=== PATIENT | female | born 1975 | race Caucasian/White ===

== ENCOUNTER 2022-08-30 15:36 | Observation (INO) ==
[2022-08-30] MEDS ORDERED: ONDANSETRON 4 MG/2 ML VIAL IV PRN (17:36)
[2022-08-30] MEDS ORDERED: KETOROLAC 30 MG/1 ML VIAL IV PRN (17:42)
[2022-08-30] MEDS ORDERED: SODIUM CHLORIDE 0.9% 500 ML IV ONE (17:45)
[2022-08-30 18:37] LABS: Basophils % 0.1 % (0.0-0.8); Hematocrit 34.3 VOL% (35.7-47.0); Hemoglobin 11.3 GM/DL (12.0-16.0); Immature Granulocytes Absolute 0.09 #; Lymphocytes # 0.2 10*3/uL (1.4-4.0); Lymphocytes % 2.2 % (21.3-54.2); Mean Corpuscular HGB Conc 32.9 GM/DL (32-36); Mean Corpuscular Volume 85.5 FL (87-102); Mean Platelet Volume 10.5 FL (9.6-12.0); Monocytes # 0.3 10*3/uL (0.11-0.8); Monocytes % 3.8 % (1.7-12.7); Neutrophils % 92.9 % (38.7-73.9); Platelet Count 145 T/CUMM (130-400); Red Blood Count 4.01 MC/CUMM (3.8-5.5); White Blood Count 8.8 T/CUMM (4-12)
[2022-08-30 19:03] LABS: Band Neutrophils 25 % (0-10); Lymphocytes 4 % (20-55); Total Cells Counted 100
[2022-08-30 19:04] LABS: Platelet Estimate Normal
[2022-08-30 19:06] LABS: Calcium 7.9 MG/DL (8.5-10.1); Osmolality,Calculated 280.7 MOS/KG (273-304); Potassium 3.3 MMOL/L (3.5-5.1)
[2022-08-30] MEDS: SODIUM CHLORIDE 0.9% 1,000 ML IV SCH ×2 (19:07→23:30)
[2022-08-30] MEDS: cefTRIAXone 2,000 MG in SODIUM CHLORIDE 0.9% 100 ML IV SCH (19:07)
[2022-08-30] MEDS: MORPHINE 2 MG/1 ML SYRINGE IV PRN (20:40)
[2022-08-30] MEDS: BUPRENORPHINE NALOXONE BUCCAL SCH (22:53)
[2022-08-31] MEDS: MORPHINE 2 MG/1 ML SYRINGE IV PRN (04:08)
[2022-08-31 05:55] LABS: Albumin 2.3 G/DL (3.4-5.0); Bilirubin,Total 1.1 MG/DL (0.20-1.00); Calcium 7.4 MG/DL (8.5-10.1); Osmolality,Calculated 281.5 MOS/KG (273-304); Potassium 3.8 MMOL/L (3.5-5.1); Total Protein 5.6 G/DL (6.4-8.2)
[2022-08-31] MEDS: cefTRIAXone 2,000 MG in SODIUM CHLORIDE 0.9% 100 ML IV SCH (06:00)
[2022-08-31] MEDS: SODIUM CHLORIDE 0.9% 1,000 ML IV SCH ×2 (06:00→09:38)
[2022-08-31 06:45] LABS: Basophils % 0.3 % (0.0-0.8); Eosinophils % 0.7 % (0.00-10.9); Hematocrit 33.7 VOL% (35.7-47.0); Immature Granulocytes % 0.3 %; Immature Granulocytes Absolute 0.02 #; Lymphocytes # 0.1 10*3/uL (1.4-4.0); Lymphocytes % 1.8 % (21.3-54.2); Mean Corpuscular HGB Conc 32.6 GM/DL (32-36); Mean Corpuscular Volume 86.6 FL (87-102); Monocytes % 0.3 % (1.7-12.7); Neutrophils % 96.6 % (38.7-73.9); Red Blood Count 3.89 MC/CUMM (3.8-5.5); Red Cell Distribution Width 14.6 % (9.3-17.3); White Blood Count 6.1 T/CUMM (4-12)
[2022-08-31 06:47] LABS: Platelet Count 90 T/CUMM (130-400)
[2022-08-31 07:48] LABS: Band Neutrophils 6 % (0-10); Eosinophils 1 % (0-10); Hypochromia Slight; Lymphocytes 5 % (20-55); Microcytosis Slight; Platelet Estimate Decreased; Total Cells Counted 100
[2022-08-31] MEDS ORDERED: HYDROCORTISONE 100 MG VIAL IV ONE (08:22)
[2022-08-31] MEDS ORDERED: SODIUM CHLORIDE 0.9% 1,000 ML IV ONE (08:35)
[2022-08-31] MEDS: BUPRENORPHINE NALOXONE BUCCAL SCH (08:36)
[2022-08-31] MEDS ORDERED: PANTOPRAZOLE 40 MG TABLET PO SCH (09:00)
[2022-08-31 12:25] VITALS: BP 83/46
== END 2022-08-31 13:45 | disposition home or self-care (01) ==
LOC: SUATTDRO 16:49 → N.2E 16:49 → INTOOBSV 16:49
PROVIDERS: ADMIT Internal Medicine; ATTEND Internal Medicine